=== PATIENT | female | born 1990 | race Caucasian/White ===

== ENCOUNTER 2016-12-05 01:07 | Emergency (ER) | payer MEDICAID ==
[~2016-12-05] VITALS: Ht 162.6 cm; Wt 86.2 kg
[~2016-12-05 01:07] MED LIST: PRENCAP61 PO
[2016-12-05 02:55] LABS: Basophils # (auto) 0 uL; DEFINITIVE VIEW TRANSMISSION; Eosinophils # (auto) 0 uL; Eosinophils % (auto) 0.2 % (0.0-7.0); Hematocrit 37.2 % (36.0-46.0); Hemoglobin 12.2 g/dL (12.2-16.2); Lymphocytes # (auto) 1.7 uL; Mean Corpuscular Hemoglobin 25.9 pg (28.0-32.0); Mean Corpuscular Hgb Conc. 32.7 g/dL (32.0-36.0); Mean Corpuscular Volume 79.2 fL (80.0-100.0); Monocytes # (auto) 0.2 uL; Monocytes % (auto) 2.7 % (0.0-12.0); Neutrophils # (auto) 5.9 uL; Neutrophils % (auto) 75.1 % (37.0-80.0); Platelet Count (auto) 278 10^3/uL (140-450); White Blood Cell 7.8 10^3/uL (4.4-10.8)
[2016-12-05 03:01] LABS: Red Cell Distribution Width 23.4 % (11.6-16.0)
[2016-12-05 03:22] LABS: Urine Bilirubin Negative (Negative); Urine Blood Negative /uL (Negative); Urine Color Yellow (Yellow); Urine Glucose Normal (Normal); Urine Ketone Negative (Negative); Urine Mucus FEW (None Seen); Urine Nitrite Negative (Negative); Urine RBC <1 /hpf (0 - 4); Urine Squamous Epithelial Cell FEW /hpf (<5); Urine Urobilinogen Normal (Negative)
[2016-12-05 03:41] LABS: Albumin 3.3 g/dL (3.4-5.0); BUN/Creatinine Ratio 7.4; Calcium 8.8 mg/dL (8.5-10.1); Potassium 3.8 mmol/L (3.5-5.1)
[2016-12-05 03:44] LABS: Bilirubin, Total 0.1 mg/dL (0.2-1.0); Total Protein 7.3 g/dL (6.4-8.2)
[2016-12-05 03:58] LABS: Anisocytosis Slight; Microcytosis Slight; Ovalocytes FEW; Platelet Estimate Adequate
[2016-12-05] MEDS ORDERED: ONDANSETRON HCL 4 MG/2 ML VIAL IV ONE (04:30)
[2016-12-05] MEDS ORDERED: HYDROmorphone HCL 2 MG/ML VL IV ONE (04:30)
[2016-12-05 05:07] LABS: Magnesium 2.1 mg/dL (1.6-2.6)
[2016-12-05 05:31] LABS: INR 0.91 (0.9-1.15); Prothrombin Time 9.9 sec (9.37-12.3)
[2016-12-05 06:31] VITALS: BP 147/73
== END 2016-12-05 06:03 | disposition home or self-care (01) ==
LOC: ER 01:10
DX: O26.892 Other specified pregnancy related conditions, second trimester (principal); K80.20 Calculus of gallbladder without cholecystitis without obstruction; Z3A.18 18 weeks gestation of pregnancy; Z79.899 Other long term (current) drug therapy
CPT/HCPCS: 36415; 76705; 76805; 80053; 81001; 82150; 83690; 83735; 84702; 85025; 85610; 85730; 94761; 96374; 96375; 99285; J1170; J2405